=== PATIENT | male | born 1970 | race Two or more races ===

== ENCOUNTER 2016-12-02 17:45 | Emergency (ER) | payer MEDICARE, MEDICAID ==
[~2016-12-02] VITALS: Ht 162.6 cm; Wt 56.2 kg
[~2016-12-02 17:45] MED LIST: EVOTAZ 300 MG-1 EACH PO; IBUPROFEN600 MG ORAL; NORCO 10/3251 EA ORAL; NORCO 5-325 TA1 EACH ORAL; OXYCONTIN20 MG ORAL; PERCOCET 10-321 EACH ORAL; ROBAXIN-750750 MG PO; TESTOSTERONE5 G1 MC; TRUVADA 200 MG1 EAC1 ORAL; [UNRECOGNIZED DRUG - OTHER]; [UNRECOGNIZED DRUG - OTHER] INJ
[2016-12-02 19:50] VITALS: BP 117/76
[2016-12-02] MEDS ORDERED: NORCO 5-325 TA1 EAC1 ORAL (20:05)
[2016-12-02] MEDS ORDERED: Ketorolac 30mg Inj IM ONE (20:15)
[2016-12-02] MEDS ORDERED: Norco 5mg/325mg tab ORAL ONE (20:15)
[2016-12-02 20:40] VITALS: BP 117/76
--- NOTE | 2016-12-02 22:34 | Emergency Room Report ---
History of Present Illness General Chief Complaint: Back Pain-No Injury Source: Patient Present Illness HPI The patient is a 46-year-old male presenting for right lower back pain and penile pain. The patient states that he had a implantable device placed in the penis earlier this year and has been on pain medications including Percocet. The patient states that he was also diagnosed with a kidney stone which needs to be removed of the right kidney. The patient states he was scheduled for procedure today but was unable to attend. The patient states pain is a 10 out of 10 dull ache to both the right lower back and the penis. He denies any injury to these areas. He denies any radiating pain. Pain better with pain medications. The patient denies other symptoms including hematuria, dysuria, penile discharge, abdominal pain, nausea, vomiting, fever Allergies: Coded Allergies: No Known Allergies (Unverified , 10/28/13) Patient History Past Medical History: see triage record Pertinent Family History: none Reviewed Nursing Documentation: PMH: Agreed, PSxH: Agreed Nursing Documentation-PMH Past Medical History: No History, Except For Hx Cancer: No - HIV Hx Gastrointestinal Problems: Yes - cholecystectomy 2016 Review of Systems All Other Systems: negative except mentioned in HPI Physical Exam Vital Signs Date Time Temp Pulse Resp B/P Pulse Ox O2 Delivery O2 Flow Rate FiO2 12/02/16 18:37 98.1 108 20 117/76 99 Room Air Sp02 EP Interpretation: reviewed, normal General Appearance: no apparent distress, alert, GCS 15, non-toxic Head: normocephalic, atraumatic Eyes: bilateral eye PERRL, bilateral eye normal inspection ENT: hearing grossly normal, normal pharynx, no angioedema, normal voice Neck: full range of motion, supple/symm/no masses Respiratory: chest non-tender, lungs clear, normal breath sounds, speaking full sentences Gastrointestinal: normal bowel sounds, non tender, soft, non-distended, no guarding, no rebound Genitourinary: CVA tenderness (R) Musculoskeletal: back normal, gait/station normal, normal range of motion, non- tender Neurologic: alert, oriented x3, responsive, motor strength/tone normal, sensory intact, speech normal Psychiatric: judgement/insight normal, memory normal, mood/affect normal, no suicidal/homicidal ideation Skin: normal color, no rash, warm/dry, well hydrated Lymphatic: no adenopathy Medical Decision Making PA Attestation Dr. Grimm is my supervising physician. Patient management was discussed with my supervising physician Diagnostic Impression: Primary Impression: Renal lithiasis ER Course The patient is a 46-year-old male presenting for pain due to kidney stone and penile implant Differential diagnoses considered but not limited to: Renolithiasis, urinary tract infection, appendicitis, pyelonephritis Physical exam: Vitals within normal limits. Patient does appear to be in pain Abdomen is soft and nontender. There is right-sided CVA tenderness Cures report matches with the patient's history. The patient is given a limited pain medication prescription he needs to followup with urologist as soon as possible. ER precautions are given Last Vital Signs Date Time Temp Pulse Resp B/P Pulse Ox O2 Delivery O2 Flow Rate FiO2 12/02/16 18:37 98.1 108 20 117/76 99 Room Air Status: improved Disposition: HOME, SELF-CARE Condition: Improved Scripts Hydrocodone Bit/Acetaminophen 5-325* (NORCO 5-325 TABLET*) 1 Each Tablet 1 TAB ORAL Q6HR Y for For Pain, #10 TAB Prov: ADRIÁN ORTEGA 12/02/16 Referrals: NON PHYSICIAN (PCP) Patient Instructions: Kidney Stones Additional Instructions: I discussed my findings with the patient. All questions and concerns have been answered. Treatment and medication compliance have been addressed. I advised the patient that they need to follow up with PMD in 3-5 days. Return to ED if symptoms worsen, new symptoms arise, or if needed for any reason. Patient verbalized understanding of discharge instructions. The patient will followup with surgeon as discussed. ADRIÁN ORTEGA December 02, 2016 22:34
== END 2016-12-02 20:40 | disposition home or self-care (01) ==
LOC: EMR 19:20
DX: N20.0 Calculus of kidney (principal); N48.89 Other specified disorders of penis; Z90.49 Acquired absence of other specified parts of digestive tract
CPT/HCPCS: 99283

== ENCOUNTER 2017-03-11 05:40 | Day surgery (SDC) | payer MEDICARE, MEDICAID ==
[~2017-03-11] VITALS: Ht 162.6 cm; Wt 54.9 kg
[2017-03-11] VITALS (15 sets, daily range): BP systolic 129–165; BP diastolic 87–105
[~2017-03-11 05:40] MED LIST changes: +NORCO 5-325 TA1 EAC1 ORAL
--- NOTE | 2017-03-11 06:17 | Pre-Procedure Note/Attestation ---
Pre-Procedure Note/Attestation Complete Prior to Procedure Procedure Narrative: laparoscopic cholecystectomy, possible open Indications for Procedure Pre-Operative Diagnosis: cholelithiasis, cholecystitis with biliary colic Attestation I attest that I discussed the nature of the procedure; its benefits; risks and complications; and alternatives (and the risks and benefits of such alternatives ), prior to the procedure, with the patient (or the patient's legal customer engagement representative). I attest that, if there was a reasonable possibility of needing a blood transfusion, the patient (or the patient's legal customer engagement representative) was given the [facility] standardized written summary, pursuant to the [place] Blood Safety Act ([place] Health and Safety Code # 1645, as amended). I attest that I re-evaluated the patient just prior to the surgery and that there has been no change in the patient's H&P, except as documented below: BELKIS HARRIS Mar 11, 2017 06:17
[2017-03-11] MEDS ORDERED: DESCOVY 200-251 EACH PO (06:26)
[2017-03-11] MEDS ORDERED: PERCOCET 10-321 EAC1 PO (06:26)
[2017-03-11] MEDS ORDERED: TIVICAY50 MG ORAL (06:26)
[2017-03-11] MEDS ORDERED: SEROSTIM6 M1 SQ (06:30)
[2017-03-11] MEDS ORDERED: Iothalamate Meglumine 60% 30ML INJ ONE (07:07)
[2017-03-11] MEDS ORDERED: Bupivacaine w/Epi 0.5% 30ml Vial INJ ONE (07:07)
[2017-03-11] MEDS ORDERED: LR 1000ml ONE (07:30)
[2017-03-11] MEDS ORDERED: fentaNYL 100 mcg/2 mL IV ONE (07:30)
[2017-03-11] MEDS ORDERED: Sterile Water Irrig 1000ml IRRIG ONE (07:30)
[2017-03-11] MEDS ORDERED: Midazolam 2mg/2ml Inj ONE (07:30)
[2017-03-11] MEDS ORDERED: Neostigmine 1mg/ml 10ml Inj ONE (07:30)
[2017-03-11] MEDS ORDERED: NS Irrig 1000ml ONE (07:30)
[2017-03-11] MEDS ORDERED: Zemuron 50mg/5ml Inj IV ONE (07:30)
[2017-03-11] MEDS ORDERED: Glycopyrrolate 0.2mg/ml 1ml Vial ONE (07:30)
[2017-03-11] MEDS ORDERED: Propofol 10mg/ml 100ml btl IV ONE (07:30)
[2017-03-11] MEDS ORDERED: NS Irrig 1000ml IRRIG ONE (08:00)
[2017-03-11] MEDS ORDERED: LR 1000ml 1,000 ML IVLG SCH (08:18)
--- NOTE | 2017-03-11 08:28 | Anethesia Preoperative Eval ---
Anesthesia Pre-op PMH/ROS General Date of Evaluation: Mar 11, 2017 Time of Evaluation: 07:25 Anesthesiologist: Minoo ASA Score: ASA 3 Mallampati Score Class I : Soft palate, uvula, fauces, pillars visible Class II: Soft palate, uvula, fauces visible Class III: Soft palate, base of uvula visible Class IV: Only hard plate visible Mallampati Classification: Class I Surgeon: Philly Diagnosis: Cholelithiasis Surgical Procedure: Lap Laura Family History: no anesthesia problems Allergies: Uncoded Allergies: METALS (Allergy, Intermediate, 03/11/17) BREAKS OUT IN A RASH Past Medical History Cardiovascular: Denies: CAD, HTN, TN, arrhythmia, other, valve dz Pulmonary: Denies: COPD, YANG, asthma, other Gastrointestinal/Genitourinary: Denies: CRI, ESRD, GERD, other Neurologic/Psychiatric: Denies: CVA, TIA, dementia, depression/anxiety, other Endocrine: Denies: DM, hypothyroidism, other, steroids HEENT: Denies: [place] (L), [place] (R), cataract (L), cataract (R), glaucoma, other Hematology/Immune: Denies: DVT, anemia, bleeding disorder, other Musculoskeletal/Integumentary: Denies: DDD, DJD, OA, RA, edema, other PMH Narrative: HIV+, polio PSxH Narrative: Abdominal X2, rectal, penie implant, lower extremity for polio Anesthesia Pre-op Phys. Exam Physician Exam Last Vital Signs Date Time Temp Pulse Resp B/P Pulse Ox O2 Delivery O2 Flow Rate FiO2 03/11/17 06:30 97.7 68 20 129/87 100 Room Air Constitutional: NAD Neurologic: CN 2-12 intact Cardiovascular: RRR, no M/R/G Respiratory: CTA Gastrointestinal: S/NT/ND Airway Exam Mallampati Score: Class I MO: full ROM: full Teeth: intact Anesthesia Pre-op A/P Labs WNL Studies Pre-op Studies: EKG - NSR Risk Assessment & Plan Assessment: Cholelithiasis in a relatively healthy male Plan: GETA Status Change Before Surgery: No Pre-Antibiotics Drug: Ancef Given Within 1 Hr of Incision: Yes Time Given: 07:45 LATISHA SMITH M.D. Mar 11, 2017 08:28
[2017-03-11] MEDS ORDERED: Meperidine 25mg/0.5ml Inj (FOR RIGORS ONLY) IV PRN (08:30)
[2017-03-11] MEDS ORDERED: LORazepam Inj 2mg/ml 1ml IV PRN (08:30)
[2017-03-11] MEDS ORDERED: DiphenhydrAMINE 50mg/ml Inj IVP PRN (08:30)
[2017-03-11] MEDS ORDERED: LR 1000ml 1,000 ML IV SCH (08:30)
[2017-03-11] MEDS ORDERED: Hydromorphone 0.5mg/0.5ml inj IVP PRN (08:30)
--- NOTE | 2017-03-11 08:39 | Brief Operative Note ---
Immediate Post Operative Note Operative Note Pre-op Diagnosis: cholelithiasis, cholecystitis with biliary colic Procedure: laparoscopic cholecystectomy Post-op Diagnosis: same as pre-op Surgeon: caesar Publications Editor: rene Anesthesiologist: marcus Anesthesia: general Specimen: yes Complications: none Condition: stable Estimated Blood Loss: minimal Drains: none Implant(s) used?: No BELKIS HARRIS Mar 11, 2017 08:39
[2017-03-11] MEDS ORDERED: HYDROmorphone 1mg/ml Carpuject SUBQ PRN ×2 (08:45→09:00)
[2017-03-11] MEDS ORDERED: Norco 5mg/325mg tab ORAL PRN (08:45)
--- NOTE | 2017-03-11 08:51 | Immediate Post-Op Evaluation ---
Immediate Post-Op Evalulation Immediate Post-Op Evalulation Procedure: Lap Laura Date of Evaluation: Mar 11, 2017 Time of Evaluation: 08:55 IV Fluids: 1000 Blood Pressure Systolic: 146 Blood Pressure Diastolic: 103 Pulse Rate: 68 Respiratory Rate: 18 O2 Sat by Pulse Oximetry: 100 Temperature (Fahrenheit): 98.2 Pain Score (1-10): 0 Nausea: No Vomiting: No Complications No complication Patient Status: reacts, patent, extubated, none Hydration Status: adequate Drug: Ancef Given Within 1 Hr of Incision: Yes Time Given: 07:45 ALTISHA SMITH M.D. Mar 11, 2017 08:51
[2017-03-11] MEDS ORDERED: Meperidine 25mg/0.5ml Inj (FOR RIGORS ONLY) ONE (08:53)
--- NOTE | 2017-03-11 22:47 | Operative Note - Dictated ---
DATE OF OPERATION: 03/11/2017 SURGEON: Alvarado Fraga M.D. ELECTRIC TRUCK OPERATOR: Dr. Marianela Arechiga. ANESTHESIOLOGIST: Eze Hennessy M.D. ANESTHESIA: General endotracheal tube. PREOPERATIVE DIAGNOSES: 1. Cholelithiasis. 2. Chronic cholecystitis. POSTOPERATIVE DIAGNOSES: 1. Cholelithiasis. 2. Chronic cholecystitis. PROCEDURE: Laparoscopic cholecystectomy. FINDINGS AND INDICATIONS: The patient is a 46-year-old male from [place], who was adopted to the [facility]. He has history of intermittent abdominal pain in the epigastrium and the right upper quadrant, with one episode of nausea, vomiting, mild fever, but no jaundice or dark urine. An abdominal ultrasound done by his primary physician showed multiple gallstones and a normal-sized common bile duct when done on 09/21/2015. Since then, I have been talking to the patient intermittently about the abdominal pain and he finally decided to go ahead and proceed with laparoscopic surgery with possible open procedure. He understood the indications, the risks, the benefits, the possible complications, possible need for open procedure and other operation and he consented. FINDINGS: Findings at surgery was that of a minimally thickened gallbladder with several stones, the largest of which was approximately 1.5 cm in diameter. The cystic duct was tiny as was the cystic artery. 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 DESCRIPTION OF PROCEDURE: With the patient lying in the supine position on the operating table, under general endotracheal anesthesia, after complete time-out with the entire abdominal region prepped and draped in the usual sterile fashion with Betadine, a French trocar was introduced through an infraumbilical and just to the right of midline and a vertical incision, subcutaneous tissues divided, the fat was then mobilized, and then the fascia was approached in the midline. After incision through here, we were able to advance a finger into the abdomen and after doing so, the French trocar was introduced and the balloon inflated. At this point, the area was visualized with the above findings, no other abnormalities. The subxiphoid right paramedian 11 mm trocar was placed and two 5-mm trocars in the right mid abdomen and the right upper quadrant through which gallbladder fundus and body were placed on traction. Retrograde dissection of the gallbladder was then continued isolating the cystic duct and the cystic artery, both of which were double clamped and transected. At this point, the gallbladder was removed off the liver bed by blunt and sharp means obtaining hemostasis with cautery. The specimen was then placed in an EndoCatch device and removed through the infraumbilical incision, and then once we reintroduced the scope, we were able to visualize very clean and dry subhepatic space and the suprahepatic area was thoroughly irrigated with normal saline. Once we made sure hemostasis was adequate, the CO2 was deflated, the trocars were removed, and the incisions closed with #0 Vicryl fascial sutures, 4-0 Vicryl subcuticular sutures, and Steri-Strips. Marcaine 0.5% with epinephrine 25 mL was injected for long-acting local anesthetic. The patient tolerated the procedure well. ESTIMATED BLOOD LOSS: Less than 5 mL. COUNT: Sponge and needle counts were correct. CONDITION: He went to the recovery room in stable condition. Alvarado Fraga M.D. DR: Servando JOB#: [id number] CC:
== END 2017-03-11 12:25 | disposition home or self-care (01) ==
LOC: SUR 05:40
DX: K80.10 Calculus of gallbladder with chronic cholecystitis without obstruction (principal); K82.8 Other specified diseases of gallbladder; G89.29 Other chronic pain; N48.6 Induration penis plastica; E29.1 Testicular hypofunction; G62.9 Polyneuropathy, unspecified; F32.9 Major depressive disorder, single episode, unspecified; F41.9 Anxiety disorder, unspecified; F17.210 Nicotine dependence, cigarettes, uncomplicated; G47.00 Insomnia, unspecified; Z79.01 Long term (current) use of anticoagulants; Z79.899 Other long term (current) drug therapy; Z88.8 Allergy status to other drugs, medicaments and biological substances; Z86.12 Personal history of poliomyelitis
CPT/HCPCS: 47562; J0690; J1170; J1200; J2250; J2405; J2704; J2710; J3010; J7120; 94003; 94150; J2180

== ENCOUNTER 2017-12-20 21:39 | Emergency (ER) | payer MEDICARE, MEDICAID ==
[~2017-12-20] VITALS: Ht 165.1 cm; Wt 54.4 kg
[~2017-12-20 21:39] MED LIST changes: +DESCOVY 200-251 EACH PO; +PERCOCET 10-321 EAC1 PO; +SEROSTIM6 M1 SQ; +TIVICAY50 MG ORAL
[2017-12-20] MEDS ORDERED: AMBIEN5 MG ORAL (21:49)
[2017-12-20] MEDS ORDERED: TESTOSTERONE5 G1 MC (21:49)
[2017-12-20] MEDS ORDERED: OXYCODONE HCL5 M2 ORAL (21:49)
[2017-12-20] MEDS ORDERED: HYDROCODON-ACE1 EA15 ORAL (22:05)
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
[2017-12-20 22:12] VITALS: BP 136/92
== END 2017-12-20 22:10 | disposition home or self-care (01) ==
LOC: EMR 22:00
DX: G89.29 Other chronic pain (principal); N48.89 Other specified disorders of penis; F11.20 Opioid dependence, uncomplicated
CPT/HCPCS: 99283

== ENCOUNTER 2018-03-07 01:38 | Emergency (ER) | payer MEDICARE, MEDICAID ==
[~2018-03-07] VITALS: Ht 162.6 cm; Wt 53.5 kg
[~2018-03-07 01:38] MED LIST changes: +AMBIEN5 MG ORAL; +HYDROCODON-ACE1 EA15 ORAL; +OXYCODONE HCL5 M2 ORAL
[2018-03-07 02:10] VITALS: BP 119/75
[2018-03-07] MEDS ORDERED: Acetaminophen 500mg (ES) tab ORAL ONE (02:30)
[2018-03-07] MEDS ORDERED: NS 1000ml 1,600 ML IVLG ONE (02:30)
[2018-03-07] MEDS ORDERED: Ketorolac 30mg Inj IV ONE (02:30)
[2018-03-07 02:56] LABS: APPEARANCE,URINE CLEAR; BILIRUBIN, URINE NEGATIVE (NEGATIVE); COLOR,URINE PALE YELLOW; GLUCOSE, URINE (UA) NEGATIVE (NEGATIVE); KETONES,URINE NEGATIVE (NEGATIVE); LEUKOCYTE ESTERASE ,URINE NEGATIVE (NEGATIVE); NITRITE,URINE NEGATIVE (NEGATIVE); PH,URINE 7 (4.5-8.0); PROTEIN,URINE NEGATIVE (NEGATIVE); UROBILINOGEN,URINE NORMAL MG/DL (0.0-1.0)
[2018-03-07 02:57] LABS: BASOPHILS % (AUTO) 0.4 % (0.0-2.0); EOSINOPHILS % (AUTO) 0.1 % (0.0-3.0); HEMATOCRIT 44.2 % (42.0-52.0); LYMPHOCYTES % (AUTO) 6.9 % (20.0-45.0); MEAN CORPUSCULAR VOLUME 88 FL (80-99); NEUTROPHILS % (AUTO) 84.6 % (45.0-75.0); PLATELET COUNT 204 K/UL (150-450); RED BLOOD COUNT 5.01 M/UL (4.70-6.10); RED CELL DISTRIBUTION WIDTH 11.6 % (11.6-14.8); WHITE BLOOD COUNT 15.6 K/UL (4.8-10.8)
[2018-03-07 02:58] LABS: ANION GAP 7 mmol/L (5-15); BLOOD UREA NITROGEN 15 mg/dL (7-18); CALCIUM 8.8 MG/DL (8.5-10.1); CARBON DIOXIDE 27 MMOL/L (21-32); CHLORIDE 102 MMOL/L (98-107); CREATININE 1.3 MG/DL (0.55-1.30); POTASSIUM 3.5 MMOL/L (3.5-5.1); SODIUM 136 MMOL/L (136-145)
[2018-03-07] MEDS ORDERED: Solu-MEDROL 125mg Inj IVP ONE (03:15)
[2018-03-07] MEDS ORDERED: Albuterol ud Inhalation HHN ONE (03:15)
[2018-03-07] MEDS ORDERED: cefTRIAXone 1 GM in NS 55 ML IVPB ONE (03:15)
[2018-03-07] MEDS ORDERED: ZITHROMAX250 MG ORAL (03:19)
[2018-03-07] MEDS ORDERED: ALBUTEROL SULF8.5 GM INH (03:19)
--- NOTE | 2018-03-07 03:20 | Emergency Room Report ---
History of Present Illness General Chief Complaint: Flu Like Symptoms Source: Patient Present Illness HPI Is a 47-year-old male with a history of HIV. He is compliant with her medication. CD4 count is normal and viral load is undetectable. He presents with chief complaint of fever, chills, cough, body pain. Onset tonight. No nausea no vomiting. Pain is 10 out of 10. He was having a week ago. Denies any other complaint. No tick bite. Allergies: Coded Allergies: No Known Allergies (Unverified , 12/20/17) Patient History Past Medical History: see triage record, old chart reviewed, HIV Past Surgical History: other Pertinent Family History: none Social History: Reports: smoking Immunizations: other Reviewed Nursing Documentation: PMH: Agreed; PSxH: Agreed Nursing Documentation-PMH Hx Cardiac Problems: No - Polio, AIDS Hx Cancer: No Hx Gastrointestinal Problems: Yes - gastic bypass Hx Neurological Problems: No Review of Systems Constitutional: Reports: chills, fever, weakness Eye: Denies: eye pain, blurred vision ENT: Denies: ear pain, nose congestion, throat swelling Respiratory: Reports: cough, sputum; Denies: shortness of breath Cardiovascular: Denies: chest pain, palpitations Gastrointestinal: Denies: abdominal pain, diarrhea, nausea, vomiting Musculoskeletal: Reports: back pain, muscle pain; Denies: joint pain Skin: Denies: rash Neurological: Denies: headache, numbness Endocrine: Denies: increased thirst, increased urine Hematologic/Lymphatic: Denies: easy bruising All Other Systems: negative except mentioned in HPI Physical Exam Vital Signs Date Time Temp Pulse Resp B/P (MAP) Pulse Ox O2 Delivery O2 Flow Rate FiO2 03/07/18 01:41 99.2 109 20 133/92 92 Room Air 99.1 03/07/18 01:59 95 vitals with fever, tachycardia Sp02 EP Interpretation: reviewed, normal General Appearance: well appearing, no apparent distress, alert Head: normocephalic, atraumatic Eyes: bilateral eye PERRL, bilateral eye EOMI ENT: hearing grossly normal, normal pharynx Neck: full range of motion, supple, no meningismus Respiratory: chest non-tender, accessory muscle use, rhonchi Cardiovascular #1: regular rate, rhythm, no murmur Gastrointestinal: normal bowel sounds, non tender, no mass, no organomegaly, no bruit, non-distended Musculoskeletal: back normal, gait/station normal, normal range of motion Neurologic: alert, oriented x3 Psychiatric: mood/affect normal Skin: warm/dry Medical Decision Making Diagnostic Impression: Primary Impression: Atypical pneumonia ER Course Patient presents with symptom of atypical pneumonia. Chest x-rays unremarkable. He felt better after IV fluid, medication, breathing treatment and antibiotics. No evidence of PE, dissection, ACS to name a few. We'll discharge home. Lab Results Impression labs with elevated WBC Rhythm Strip Diag. Results EP Interpretation: yes Rate: 92 Rhythm: NSR, no PVC's, no ectopy Chest X-Ray Diagnostic Results Chest X-Ray Diagnostic Results : Chest X-Ray Ordered: Yes # of Views/Limited/Complete: 1 View Indication: Shortness of Breath EP Interpretation: Yes Interpretation: no consolidation, no effusion, no pneumothorax, no acute cardiopulmonary disease Impression: No acute disease Electronically Signed by: Mika Ham MD Last Vital Signs Date Time Temp Pulse Resp B/P (MAP) Pulse Ox O2 Delivery O2 Flow Rate FiO2 03/07/18 02:51 99.4 03/07/18 02:10 95 16 119/75 95 Room Air 03/07/18 01:59 95 Status: improved Disposition: HOME, SELF-CARE Condition: Stable Scripts Albuterol Sulfate* (ALBUTEROL SULFATE MDI*) 8.5 Gm Hfa.aer.ad 2 PUFF INH Q4H PRN for cough/wheezing, #1 EA 0 Refills Prov: MIKA HAM M.D. 03/07/18 Azithromycin* (ZITHROMAX*) 250 Mg Tablet 250 MG ORAL DAILY, #6 TAB 0 Refills Take two tables once daily for 1 day, then one tablet once daily for 4 days. Prov: MIKA HAM M.D. 03/07/18 Referrals: NOT CHOSEN IPA/,REFERRING (PCP) Additional Instructions: Follow-up your doctor in 7 days. Return if worse. MIKA HAM M.D. Mar 07, 2018 03:20
[2018-03-07 03:51] VITALS: BP 114/70
[2018-03-07 04:03] VITALS: BP 114/70
--- NOTE | 2018-03-07 05:02 | Diagnostic Imaging Report ---
EXAM: XR Chest, 1 View CLINICAL HISTORY: SOB TECHNIQUE: Frontal view of the chest. COMPARISON: No relevant prior studies available. FINDINGS: Lungs: Unremarkable. No consolidation. Pleural space: Unremarkable. No pneumothorax. Heart: Unremarkable. No cardiomegaly. Mediastinum: Unremarkable. Bones/joints: Unremarkable. IMPRESSION: Normal chest x-ray.
== END 2018-03-07 04:03 | disposition home or self-care (01) ==
LOC: EMR 02:44
DX: J18.9 Pneumonia, unspecified organism (principal); B20 Human immunodeficiency virus [HIV] disease; Z98.84 Bariatric surgery status; F17.200 Nicotine dependence, unspecified, uncomplicated
CPT/HCPCS: 36415; 71045; 80048; 81003; 83605; 85025; 87040; 94640; 94664; 96360; 96374; 99284; J0696; J1885; J2930

== ENCOUNTER 2019-02-08 00:49 | Emergency (ER) | payer MEDICARE, MEDICAID ==
[~2019-02-08 00:49] MED LIST changes: +ALBUTEROL SULF8.5 GM INH; +ZITHROMAX250 MG ORAL
--- NOTE | 2019-02-08 00:50 | NUR ---
CALLED PATIENT FOR TRIAGE; NOT IN WAITING ROOM.
--- NOTE | 2019-02-08 01:00 | NUR ---
CALLED PATIENT FOR TRIAGE; NOT IN WAITING ROOM.
--- NOTE | 2019-02-08 01:10 | NUR ---
CALLED PATIENT FOR TRIAGE; NOT IN WAITING ROOM.
--- NOTE | 2019-02-08 02:17 | Emergency Room Report ---
History of Present Illness General Chief Complaint: To Be Triaged Present Illness Allergies: Coded Allergies: No Known Allergies (Unverified , 12/20/17) Nursing Documentation-PMH Hx Cardiac Problems: No - Polio, AIDS Hx Cancer: No Hx Gastrointestinal Problems: Yes - gastic bypass Hx Neurological Problems: No Medical Decision Making Diagnostic Impression: Primary Impression: Patient left without being seen ER Course Patient left prior to triage or MD evaluation Status: unchanged Disposition: LEFT W/OUT BEING SEEN Condition: Stable Referrals: NOT CHOSEN IPA/,REFERRING (PCP) Puma Miles MD Feb 08, 2019 02:17
== END 2019-02-08 01:10 | disposition left against medical advice (07) ==
LOC: EMR 01:10
DX: Z53.21 Procedure and treatment not carried out due to patient leaving prior to being seen by health care provider (principal)

== ENCOUNTER 2019-02-08 02:11 | Emergency (ER) | payer MEDICARE, MEDICAID ==
[~2019-02-08] VITALS: Ht 165.1 cm; Wt 53.5 kg
--- NOTE | 2019-02-08 02:41 | NUR ---
ED Nurse Note: PATIENT AMBULATED TO ED C/O PENILE PAIN X18 MONTHS. PT STATES HE HAD PENILE IMPLANT SURGERY AND IMPLANT IS HURTING HIS PROSTATE. Pt is AO x 4times, VSS, on room air no distress. RAUL seen Pt at bedside.
[2019-02-08] MEDS ORDERED: traMADol 50mg tab ORAL ONE (02:45)
[2019-02-08 02:51] VITALS: BP 133/89
[2019-02-08 02:53] VITALS: BP 133/89
--- NOTE | 2019-02-08 02:53 | NUR ---
ER DISCHARGE NOTE: Patient is cleared to be discharged per ERMD, pt is aox4, on room air, with stable vital signs. pt was given dc and prescription instructions, pt was able to verbalize understanding, pt id band removed without complications. pt is able to ambulate with steady gait. pt took all belongings.
--- NOTE | 2019-02-08 04:53 | Emergency Room Report ---
History of Present Illness General Chief Complaint: Male Urogenital Problems Source: Patient Present Illness HPI 48-year-old male patient. Patient is here for pain. States he had a penile implant surgery done 18 months ago and states he has been having pain since. Pain is dull, 8 out of 10, nonradiating. States he also cannot sleep. Wants medication to "knock me out". Dysuria or hematuria. No other aggravating or relieving factors. Denies any other associated symptoms Allergies: Coded Allergies: No Known Allergies (Unverified , 12/20/17) Patient History Past Medical History: none Past Surgical History: other - penile implant Pertinent Family History: none Social History: Denies: smoking, alcohol use, drug use Immunizations: UTD Reviewed Nursing Documentation: PMH: Agreed; PSxH: Agreed Nursing Documentation-PMH Past Medical History: No History, Except For Hx Cardiac Problems: No - Polio, AIDS Hx Cancer: No Hx Gastrointestinal Problems: Yes - gastic bypass Hx Neurological Problems: No Review of Systems All Other Systems: negative except mentioned in HPI Physical Exam Vital Signs Date Time Temp Pulse Resp B/P (MAP) Pulse Ox O2 Delivery O2 Flow Rate FiO2 02/08/19 02:13 98.2 100 12 133/89 (104) 98 Room Air Sp02 EP Interpretation: reviewed, normal General Appearance: no apparent distress, alert, GCS 15, non-toxic Head: normocephalic, atraumatic Eyes: bilateral eye normal inspection, bilateral eye PERRL ENT: hearing grossly normal, normal pharynx, no angioedema, normal voice Neck: full range of motion, supple/symm/no masses Respiratory: chest non-tender, lungs clear, normal breath sounds, speaking full sentences Cardiovascular #1: regular rate, rhythm, no edema Cardiovascular #2: 2+ carotid (R), 2+ carotid (L), 2+ radial (R), 2+ radial (L) , 2+ dorsalis pedis (R), 2+ dorsalis pedis (L) Gastrointestinal: normal bowel sounds, non tender, soft, non-distended, no guarding, no rebound Rectal: deferred Genitourinary: normal inspection, no CVA tenderness Musculoskeletal: back normal, gait/station normal, normal range of motion, non- tender Neurologic: alert, oriented x3, responsive, motor strength/tone normal, sensory intact, speech normal Psychiatric: judgement/insight normal, memory normal, mood/affect normal, no suicidal/homicidal ideation Reflexes: 3+ bicep (R), 3+ bicep (L), 3+ tricep (R), 3+ tricep (L), 3+ knee (R) , 3+ knee (L) Lymphatic: no adenopathy Medical Decision Making Diagnostic Impression: Primary Impression: Chronic pain Qualified Codes: G89.29 - Other chronic pain Additional Impression: Drug-seeking behavior ER Course 48-year-old male presents ED complaining of pain from penile implant 18 months ago differential chronic pain, opioid dependence, drug-seeking behavior Placed on stretcher. After initial history and physical I reviewed EMR. Patient has been here previously for pain medications. I reviewed cures and patient is receiving oxycodone, Ambien, Ativan on a monthly basis. I discussed this with the patient. Patient is requesting additional medication here as well as prescriptions. Is asking for medications to make him sleep. i explained that due to his extensive prescription history I cannot provide him with any additional prescriptions at this time. I agreed to provide him with 1 tablet of tramadol for pain. Patient will be discharged to home diagnosischronic pain, drug-seeking behavior Stable discharge to home. Follow-up with PMD. Return to ED if symptoms recur or worsen Last Vital Signs Date Time Temp Pulse Resp B/P (MAP) Pulse Ox O2 Delivery O2 Flow Rate FiO2 02/08/19 02:53 98.3 69 17 133/89 98 Room Air Status: improved Disposition: HOME, SELF-CARE Condition: Stable Referrals: NON PHYSICIAN (PCP) [facility] Patient Instructions: Chronic Pain Puma Miles MD Feb 08, 2019 04:53
== END 2019-02-08 02:53 | disposition home or self-care (01) ==
LOC: EMR 02:31
DX: G89.29 Other chronic pain (principal); Z76.5 Malingerer [conscious simulation]; B20 Human immunodeficiency virus [HIV] disease; Z98.84 Bariatric surgery status
CPT/HCPCS: 99282